=== PATIENT | female | born 1980 | race Caucasian/White ===

== ENCOUNTER → 2022-11-08 10:26 | Outpatient (BNVA) | payer SELFPAY | PROVIDERS: Family Provider General Practice; Visit Provider Emergency Medicine | DX: M25.511 Pain in right shoulder (principal) | CPT/HCPCS: 73030 ==

== ENCOUNTER 2023-06-17 22:03 | Emergency (ER) | payer SELFPAY ==
[2023-06-17 22:10] VITALS: BP 130/102; PULSE 122; RESP 16; TEMP 36.6; O2SAT 98; BMI 22.6
--- NOTE | 2023-06-17 22:44 | ED.C_ITS ---
HPI - Psych General: Chief Complaint: Psychiatric Symptoms Stated Complaint: MHE Time Seen by Provider: 06/17/23 22:06 History of Present Illness: 42-year-old female presents to the emerg ency department at the request of [employer]. The safety instruction police officer states that a family member called because they could not get a hold of the patient. She states she was sleeping when they entered her house and stated she would be more than willing to voluntarily come to the emergency department to be evaluated. The patient has been very cooperative and pleasant here in the ER she states she is not a harm to herself or others. She states she has no behavioral health history and has never been inpatient. She states that 18 months ago she did have a period where she was depressed because she lost her mother but had no intention of harming herself or anyone else. 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 She states she has had a lot of life stressors recently as she had a DUI approximately 2 months ago and she is currently fighting that but she states that she is dealing with that through the legal system. The patient's godmother who is a retired registered nurse states that she feels the patient is not a harm to herself either. Associated symptoms: Reports depression; Deny auditory hallucinations, visual hallucinations, homicidal ideation or suicidal ideation Review of Systems General: Reports: 10 or more systems reviewed and unremarkable except in HPI and below Psych: Reports: depression; Denies: sleeping less, sleeping more, difficulty concentrating, visual hallucinations, auditory hallucinations, tactile hallucinations, suicidal ideation or homicidal ideation [facility] ED Female Reproductive History: Date of last menstrual period: 06/05/23 Physical Exam Narrative: EXAM NARRATIVE: Constitutional: the patient appears well nourished and with normal development. Vital signs reviewed as documented. HENMT: Normocephalic, atraumatic. External ears normal appearance without drainage. Nose without drainage, normal appearance. Mucus membranes moist. Neck is supple, No jugular venous distension, trachea is midline, no appreciable carotid bruits. No lymphadenopathy. No meningeal signs. Flexion, extension and lateral rotation is without pain. Eyes: Pupils are equal, round, reactive to light and accommodation. No scleral icterus. Extra-ocular movement are intact. Thorax is symmetrical and with equal rise and fall with respirations. Resp: Lungs are clear to auscultation. No wheezes, rales, crackles or ronchi at present. Cardio: Regular rate and rhythm. Positive S1, S2. No appreciable murmurs, rubs or gallops. GI: Abdominal exam reveals normal bowel sounds to all quadrants. No organomegaly. No obvious palpable masses noted. No hepatomegally appreciated. Soft, non-tender to palpation. Extremity: Extremities are non-edematous and both femoral and pedal pulses are 2+ and equal bilaterally. Moves all extremities well, sensation in all extremities. Neuro: Alert and oriented x4, person, place, time and situation. Cranial nerves II through XII are grossly intact, there is no focal neurological deficits that I can appreciate at present. Motor strength in the upper and lower extremities are equal and bilateral 5/5. Psych: Cooperative, calm, normal thought process, appropriate judgment. No suicidal or homicidal ideations. Skin: No lesions, rashes. No gross abnormalities noted. Back: Symmetrical, no obvious deformity, No CVA tenderness Course Vital Signs: Vital signs: Vital Signs Temperature 97.9 F 06/17/23 22:10 Pulse Rate 122 H 06/17/23 22:10 Respiratory Rate 16 06/17/23 22:10 Blood Pressure 130/102 06/17/23 22:10 Pulse Oximetry 98 06/17/23 22:10 Oxygen Delivery Me thod Room Air 06/17/23 22:10 [facility] - Psych Medical Decision Making Physical exam completed and documented. The patient has requested that I contact the psychiatrist on-call before obtaining laboratory evaluation. The patient does not appear to be having any impaired judgment, her demeanor is appropriate and cooperative. I did contact Dr. Claire to discuss the patient's case and he did agree that the presentation the patient demonstrates no lethality the patient was in agreement that she would follow-up with the crisis center or behavioral health if needed. She does have a family member that is present with her who states that she is her godmother and she is also a retired registered nurse and the family member does agree that the patient is not a harm to herself or others. Medical Records I reviewed the patient's medical records. No radiology studies performed this visit Discharge Plan Discharge Patient Disposition: Home Clinical Impression: Alcohol use Depression Qualifiers: Depression Type: unspecified Qualified Code(s): F32.A - Depression, unspecified Condition: Stable Prescriptions: No Action oxycodone-acetaminophen 5-325 mg tablet 1 tab PO Q6H PRN (Reason: pain) 5 Days Qty: 20 0RF methocarbamol 750 mg tablet 750 mg PO Q8H Qty: 30 0RF Discharge Orders: Discharge ED (Routine); Ordered 06/17/23 Ordered By: Russ Teran Referrals: Peng Rai MD [Family Provider] - Discharge Diet: Usual diet Discharge Activity: Resume usual activity Patient Instructions: Opioid Safety, Pain Management Activity Restrictions/Additional Instructions: Activity Restrictions/Additional Instructions: Thank you for choosing [facility] for your healthcare needs today. Please realize that you were seen in the Emergency Department and that we are providing you with an emergency medical screening exam and this may not be a complete and all inclusive of all the testing and or medical work-up that you may need to determine your ailment or severity of your illness. It is very important that you follow-up as instructed with your Primary care provider or Specialist for additional evaluation and to discuss your medical treatment plan. You may return to the Emergency Department should you have concerns or if your condition changes or worsens in any way. Coding Level of Care Code ED [employer] for Veronica Sommers
[2023-06-17 23:01] VITALS: BP 143/99; PULSE 110; RESP 22; O2SAT 96
== END 2023-06-17 23:02 | disposition home or self-care (01) ==
PROVIDERS: Emergency Provider Internal Medicine; Family Provider General Practice
DX: F32.A Depression, unspecified (principal); F10.90 Alcohol use, unspecified, uncomplicated
CPT/HCPCS: 99283